=== PATIENT | male | born 1995 | race Hispanic/Latino ===

== ENCOUNTER 2021-07-21 14:25 | Emergency (ER) | payer SELFPAY ==
[~2021-07-21] VITALS: Ht 182.9 cm; Wt 74.8 kg
[2021-07-21] MEDS ORDERED: LORAZEPAM 1 MG TABLET PO ONE (15:00)
[2021-07-21 15:33] LABS: APPEARANCE,URINE CLEAR (CLEAR); BASOPHILS % (AUTO) 0.1 % (0.0-5.0); BILIRUBIN,URINE NEGATIVE (NEGATIVE); COLOR,URINE STRAW (YELLOW); EOSINOPHILS % (AUTO) 0.1 % (0.0-8.0); GLUCOSE, URINE (UA) NEGATIVE (NEGATIVE); HEMATOCRIT 43.4 % (42-54); KETONES,URINE NEGATIVE (NEGATIVE); LEUKOCYTE ESTERASE ,URINE NEGATIVE (NEGATIVE); LYMPHOCYTES % (AUTO) 24.2 % (21.0-51.0); MEAN CORPUSCULAR HEMOGLOBIN 33.2 pg (27.0-33.0); MEAN CORPUSCULAR HGB CONC 35.7 g/dL (32.0-36.0); MEAN CORPUSCULAR VOLUME 92.9 fL (79-99); MONOCYTES % (AUTO) 7.2 % (3.0-13.0); NEUTROPHILS % (AUTO) 68.1 % (40.0-77.0); NITRATE,URINE NEGATIVE (NEGATIVE); OCCULT BLOOD,URINE NEGATIVE (NEGATIVE); PLATELET COUNT (AUTO) 222 K/uL (130-400); PROTEIN,URINE NEGATIVE (NEGATIVE); RED BLOOD CELL COUNT(AUTO) 4.67 MIL/uL (4.50-6.20); RED CELL DISTRIBUTION WIDTH 11.9 % (11.0-15.5); UROBILINOGEN,URINE 0.2 mg/dL (0.2-1.0); WHITE BLOOD COUNT (AUTO) 6.9 K/uL (4.8-10.8)
[2021-07-21 15:43] LABS: CREATININE 0.9 mg/dL (0.5-1.5); POTASSIUM 3.9 mmol/L (3.5-5.1)
[2021-07-21 15:48] LABS: ALBUMIN 4.6 g/dL (3.5-5.0); TOTAL PROTEIN, SERUM 7.9 g/dL (6.0-8.3)
[2021-07-21] MEDS ORDERED: HYD25 PO (16:10)
[2021-07-21] MEDS ORDERED: LORAZEPAM 0.5 MG TABLET ONE (16:14)
[2021-07-21] MEDS ORDERED: LORAZEPAM 1 MG TABLET ONE (16:16)
[2021-07-21 16:34] VITALS: BP 138/86
== END 2021-07-21 16:38 | disposition home or self-care (01) ==
LOC: EEVIPCON 14:25 → EDH 14:25
DX: F41.9 Anxiety disorder, unspecified (principal); R20.2 Paresthesia of skin; R40.0 Somnolence; R42 Dizziness and giddiness
CPT/HCPCS: 36415; 70450; 80053; 81003; 85025; 93005

== ENCOUNTER 2024-11-07 06:21 | Emergency (ER) | payer SELFPAY ==
[~2024-11-07] VITALS: Ht 182.9 cm; Wt 81.6 kg
[~2024-11-07 06:21] MED LIST: HYD25 PO
--- NOTE | 2024-11-07 06:41 | ERN ---
ED Note History of Present Illness Stated Complaint: ANXIETY. DIZZINESS Chief Complaint: Multiple Complaints Time Seen by MD: 06:33 Dictation: This is a 28-year-old male who presented to the emergency room stating that he is extremely anxious unable to relax. He indicated to me that he from his girlfriend of 2 years a few days ago which triggered his extreme anxiety. He was on his way to his mother's house but could not drive due to panic and diverted to the ER here. He denied any suicidal ideations. He is gainfully employed and he intermittently has episodes of severe anxiety. He has never been formally evaluated by a psychiatrist and has never received any therapy Denied any fever chills or rigors. No headaches nausea vomitings he also reported he felt dizzy and very tremulous. Temperature 97.3 pulse 89 respirations 20 blood pressure 163/98 with a pulse oximetry of 100% on room air Allergies: Coded Allergies: No Known Allergies (Unverified Allergy, Unknown, 07/21/21) Home Meds Active Scripts Hydroxyzine HCl (Atarax) 25 Mg Tab, 25 MG PO TIDP, #30 TAB Prov:CHRISTIE SIMS 07/21/21 Past Medical History Past Medical History: Anxiety Surgical History: None Family History: Negative Social History: Negative RN Note Reviewed/Agreed w/PFSH: Yes Review of System Dictation Constitutional: Negative for fever,chills, and weight loss Eyes: Negative for injury, pain,redness, and discharge ENT: Negative for injury,pain or swelling Cardiovascular: Negative for chest pain, palpitations, and edema Respiratory: Negative for shortness of breath, cough, and wheezing, Abdomen/GI: Negative for abdominal pain, nausea, vomiting, diarrhea, and constipation Back: Negative for injury and pain : Negative for injury, bleeding and discharge MS/Extremity: Negative for injury and deformity Skin: Negative for rash, and discoloration Neuro: Negative for headache, weakness, numbness, tingling, and seizure Psych: Negative for suicide ideation, homicidal ideation, and hallucinations positive for severe anxiety dizziness and panic Initial Vital Sign VS Vital Signs Date Time Temp Pulse Resp B/P (MAP) Pulse Ox O2 Delivery O2 Flow Rate FiO2 11/07/24 06:23 97.3 89 20 163/98 100 Room Air 11/07/24 06:29 0 21 Physical Exam Dictation General: awake, alert, NAD very pleasant young man but intermittently taking deep breaths appears extremely anxious and tremulous Head/Face: Normocephalic, atraumatic Eyes: PERRL, EOMI, vision at baseline ENT: oral cavity clear, TMs clear, no signs of infection Neck: Trachea midline, supple, no nuchal rigidity Cardiovascular: RRR, normal S1/S2, No MRGs, no JVD Respiratory: CTAB, no respiratory distress, No rales or wheezes Abdomen: Soft, non-tender, non-distended, normal bowel sounds, no guarding or rebound. Skin: Warm, dry, normal turgor, no rash MS/Extremity: Pulses equal, no cyanosis, neurovascular intact, FROM Neuro: COAx4, GCS 15, strength 5/5, CN 2-12 intact, normal cerebellar exam, normal gait, Psych: Normal behavior, mood, and affect normal Extremities-trace edema without any palpable cords, Homans sign is negative ED Course ED Course Vital Signs Date Time Temp Pulse Resp B/P (MAP) Pulse Ox O2 Delivery O2 Flow Rate FiO2 11/07/24 06:29 98.8 81 20 142/98 100 Room Air* 0 21 11/07/24 06:23 97.3 89 20 163/98 100 Room Air We will administer medications according to the patient's complaint. Once the results are available, will review and personally interpreted the labs to rule out any acute life-threatening emergency the trach require immediate intervention and treatment. I will then re-evaluate the patient after treatment and diagnostic exams have return to determine whether the patient requires any further testing, can safely be discharged home or need further admission to hospital for additional treatment and evaluation. Medical Decision Making MDM MDM: Differential diagnosis: Panic, anxiety, situational depression Rationale: Tests considered and ordered secondary to shared decision making include: Previous outside records reviewed: Old ER visits. Risk of complication and/or morbidity or mortality of patient management: None Medications-Per medication reconciliation Need for hospitalization: Patient does not meet criteria for hospitalization. Need for emergency major/minor surgery: No There are no social concerns with this patient. Prescription drug management Prescriptions will include symptomatic care Patient's prior external medical records from other ER visits were reviewed by me as indicated. Prior testing and results from previous visits were reviewed. Prior tests were taken into account with medical decision making and resource utilization, independent historian/historians were used to obtain complete medical history. I independently interpreted the test that were performed, results were reviewed by me and considered findings on radiology if ordered. Medical management and examination interpretation discussions were had by me with other qualified healthcare professionals as indicated for the patient's care. Problem List Problem List: (1) Anxiety (2) Somatic symptom disorder DX & DISP Disposition: Discharge Departure Impression: Primary Impression: Anxiety Additional Impression: Somatic symptom disorder Condition: Stable Scripts Alprazolam (Alprazolam) 0.25 Mg Tablet 1 TAB PO TIDP PRN for anxiety for 5 Days, #15 TAB 0 Refills Prov: LAURA WHALEY MD 11/07/24 Hydroxyzine HCl (Hydroxyzine HCl) 25 Mg Tablet 1 TAB PO TID for anxiety for 10 Days, #30 TAB 0 Refills Prov: LAURA WHALEY MD 11/07/24 Additional Instructions: Patient and the caregiver have been informed of all the diagnostic tests and the imaging conducted during the today's visit to the emergency room and has verbalized understanding of the results I have personally reviewed and interpre dash all diagnostic exams performed here in the ER today as well as the vital signs documented by the nursing staff. The patient is now being discharged to home and should follow up with the primary care physician or the specialist as directed by the ER staff. Follow-up with primary care provider in 1 to 2 days. Take medications as directed here in the emergency room. Okay to continue home medications unless otherwise discussed during your visit in the emergency room today. Return to your nearest emergency room if symptoms worsen or if there is no improvement. Call 911 if you need immediate assistance. Take Tylenol or Motrin o [id number] as needed and if no contraindications are present. Increase oral hydration. A wound culture or urine culture was ordered here in the emergency room department please follow-up with primary care provider and advise them to get repeat ports from our facility. If you had any Danny wrap/splints that were applied here, please do not remove them until you see your primary care or specialty. Referrals: SELF,REFERRAL (PCP) LAURA WHALEY MD Nov 07, 2024 06:41
[2024-11-07] MEDS ORDERED: HYDR-3421 PO (07:04)
[2024-11-07] MEDS ORDERED: ALPR0.255 PO (07:04)
[2024-11-07] MEDS: ALPRAZolam 0.5 MG TABLET PO ONE (07:39)
[2024-11-07 07:44] VITALS: BP 132/88; PULSE 83; RESP 20; TEMP 98; O2SAT 100
== END 2024-11-07 07:47 | disposition home or self-care (01) ==
LOC: EDH 06:21
DX: F41.9 Anxiety disorder, unspecified (principal); F45.1 Undifferentiated somatoform disorder; Z79.899 Other long term (current) drug therapy
CPT/HCPCS: 99283